=== PATIENT | female | born 1995 | race Two or more races ===

== ENCOUNTER 2022-04-17 19:10 | Emergency (ER) | payer OTHER, SELFPAY ==
[2022-04-17] MEDS ORDERED: Sulfameth/Trimethoprim DS 800-160mg TAB ONE (20:02)
== END 2022-04-17 20:23 | disposition home or self-care (01) ==
LOC: BURERS 19:10
DX: S70.362A Insect bite (nonvenomous), left thigh, initial encounter (principal); S70.361A Insect bite (nonvenomous), right thigh, initial encounter; L08.9 Local infection of the skin and subcutaneous tissue, unspecified; W57.XXXA Bitten or stung by nonvenomous insect and other nonvenomous arthropods, initial encounter
CPT/HCPCS: 99282